=== PATIENT | male | born 1965 | race Caucasian/White ===

== ENCOUNTER 2018-04-25 18:25 | Emergency (ER) | payer BC, OTHER ==
--- NOTE | 2018-04-25 19:17 | ED ---
Throat Pain/Nasal Congestion - HPI Summary HPI Summary: Pt is a 53 year old male presenting to the ED with a chief complaint of eye issues onset about an hour ago. The eye issues are painless, but he reports seeing floaters as well as red spots, urbina haziness, and has blurry vision. Pt denies any prior significant eye problems. - History of Current Complaint Chief Complaint: EDEyeProblem Time Seen by Provider: 04/25/18 18:54 Hx Obtained From: Patient Onset/Duration: Sudden Onset, Lasting Hours Severity: Mild - Allergies/Home Medications Allergies/Adverse Reactions: Allergies Allergy/AdvReac Type Severity Reaction Status Date / Time No Known Allergies Allergy Verified 04/25/18 18:27 PMH/Surg Hx/FS Hx/Imm Hx Previously Healthy: Yes Cardiovascular History: Denies: Hx Hypertension History: Denies: Hx Acute Renal Failure Infectious Disease History: No Infectious Disease History: Denies: Traveled Outside the [place] in Last 30 Days - Family History Known Family History: Negative: Hypertension - Social History Alcohol Use: None Substance Use Type: Reports: None Smoking Status (MU): Unknown if Ever Smoked Review of Systems Negative: Fever Positive: Blurred Vision, Other - floaters, haziness, red spots. All Other Systems Reviewed And Are Negative: Yes Physical Exam - Summary Physical Exam Summary: Appearance: Well-appearing, Well-nourished, lying in bed comfortable Skin: Warm, dry, no obvious rash Eyes: sclera anicteric, no conjunctival pallor, 3mm and reactive, gaze conjugate , no conjunctivitis, anterior chamber appears clear, visual acuity about 20/40 bilaterally with glasses. ENT: mucous membranes moist Neck: deferred Respiratory: No signs of respiratory distress Cardiovascular: Appears well perfused, pulses are nml Abdomen: deferred Musculoskeletal: Moving all 4 extremities without obvious discomfort Neurological: Awake and alert, mentation is normal, speech is fluent and appropriate Psychiatric: affect is normal, does not appear anxious or depressed Triage Information Reviewed: Yes Vital Signs On Initial Exam: Initial Vitals Temp Pulse Resp BP Pulse Ox 98.2 F 85 16 131/84 94 04/25/18 18:27 04/25/18 18:27 04/25/18 18:27 04/25/18 18:27 04/25/18 18:27 Vital Signs Reviewed: Yes Diagnostics - Vital Signs Vital Signs Temp Pulse Resp BP Pulse Ox 04/25/18 18:27 98.2 F 85 16 131/84 94 - Laboratory Lab Statement: Any lab studies that have been ordered have been reviewed, and results considered in the medical decision making process. EENT Course/Dx - Course Course Of Treatment: Pt is a 53 year old male presenting with a complaint of eye issues, including haziness, blurred vision, as well as seeing floaters and red spots. Pt has no prior significant eye issues, and does not complain of pain. Sx do not seem to be progressing. - Diagnoses Provider Diagnoses: Retinal detachment Discharge - Sign-Out/Discharge Documenting (check all that apply): Patient Departure - Discharge Plan Condition: Good Disposition: HOME Patient Education Materials: Retinal [place] (ED) Referrals: [facility] [place] PHYSICIAN REFERRAL [Outside] Additional Instructions: I spoke to the covering diaper machine tender at [facility], Dr. Irby. I gave her your phone number and she will call you tomorrow to arrange a time to meet at the clinic for a more thorough exam. The number for the service is [phone]. - Billing Disposition and Condition Condition: GOOD Disposition: Home - Attestation Statements Document Initiated by Scribe: Yes Documenting Scribe: Armida Greer Provider For Whom Errolibe is Documenting (Include Credential): Familia Moncada MD. Scribe Attestation: IArmida, scribed for Familia Moncada MD. on 04/26/18 at 0404. Scribe Documentation Reviewed: Yes Provider Attestation: The documentation as recorded by the scribeArmida accurately reflects the service I personally performed and the decisions made by me, Familia Moncada MD. Consult Consult: 1920 - Spoke with Kandy Vaz MD, at [facility] in [place]. She advised the pt to follow up with her tomorrow.
[2018-04-25 19:34] VITALS: BP 136/65
== END 2018-04-25 19:35 | disposition home or self-care (01) ==
LOC: ED 18:25
DX: H33.20 Serous retinal detachment, unspecified eye (principal)
CPT/HCPCS: 99282